=== PATIENT | male | born 1980 | race Two or more races ===

== ENCOUNTER 2019-02-03 21:46 | Emergency (ER) | payer OTHER ==
[~2019-02-03] VITALS: Ht 167.6 cm; Wt 69.9 kg
--- NOTE | 2019-02-03 21:48 | NUR ---
PT BIBLAPD AND RA FOR AGGRESSIVE BEHAVIOR, PT RESPONSIVE TO PAINFUL STIMULI, PT ON MONITOR, VSS, NAD NOTED, PENDING MD DIANE
--- NOTE | 2019-02-03 23:00 | NUR ---
PER DR TRUJILLO, PT ON ER OBS; PT WAS GIVEN [place] JUSTICE, PT ON MONITOR, NAD NOTED, VSS.
--- NOTE | 2019-02-04 03:42 | NUR ---
PT REQUESTING TO BE DISCHARGED HOME. PT STATED THAT HE LIVES IN AN APARTMENT. PT ADMITS TO DRUG USE LAST NIGHT. Patient is awake and alert to self, day, and place.(pt. name) ambulatory with a steady gait. Patient discharged to home in stable condition. Written and verbal after care instructions given. Patient verbalizes understanding of instruction.
[2019-02-04 03:55] VITALS: BP 112/80
== END 2019-02-04 03:57 | disposition home or self-care (01) ==
LOC: ER 21:47
DX: F15.10 Other stimulant abuse, uncomplicated (principal)